=== PATIENT | male | born 1995 | race Caucasian/White ===

== ENCOUNTER 2023-09-24 08:00 | Emergency (ER) | payer OTHER ==
[~2023-09-24] VITALS: Ht 175.3 cm; Wt 91.0 kg
[2023-09-24 08:12] VITALS: TEMP 98.2
[2023-09-24] MEDS ORDERED: ALBUTEROL (0.083%) 2.5MG/3ML NEB HHN ONE (08:45)
[2023-09-24] MEDS: DEXAMETHASONE 4MG/ML 1ML VIAL IM ONE (08:59)
[2023-09-24 09:05] VITALS: PULSE 85; RESP 16; O2SAT 98
[2023-09-24] MEDS: IPRATROPIUM/ALBUTEROL 0.5-3(2.5)MG/3ML NEB HHN ONE (09:05)
[2023-09-24] MEDS ORDERED: ALBU6.7H15 INH (09:36)
[2023-09-24] MEDS ORDERED: BUDE6.9H INH (09:36)
[2023-09-24 09:52] VITALS: BP 128/81; PULSE 72; RESP 15
== END 2023-09-24 09:56 | disposition home or self-care (01) ==
LOC: ER 08:00
DX: J45.901 Unspecified asthma with (acute) exacerbation (principal)
CPT/HCPCS: 94640; 96372; 99283; J1100; Z7610 ×3